=== PATIENT | male | born 1965 | race Caucasian/White ===

== ENCOUNTER 2019-03-19 15:50 | Inpatient (IN) | payer SELFPAY ==
[2019-03-19] VITALS: BP 138/82
[~2019-03-19] VITALS: Ht 165.1 cm; Wt 81.2 kg
[2019-03-19 16:33] LABS: BASOPHILS # (AUTO) 0.2 /CMM (0.0-0.2); EOSINOPHILS % (AUTO) 1.5 % (0.0-6.0); HEMATOCRIT 48 % (39-51); HEMOGLOBIN 16.4 g/dL (13.5-17.5); LYMPHOCYTES # (AUTO) 1.3 /CMM (0.8-4.8); LYMPHOCYTES % (AUTO) 15.6 % (20.0-44.0); MEAN CORPUSCULAR HGB CONC 34 g/dl (31.0-36.0); MEAN CORPUSCULAR VOLUME 92 fL (80-96); MONOCYTES # (AUTO) 0.5 /CMM (0.1-1.30); MONOCYTES % (AUTO) 5.9 % (2.0-12.0); NEUTROPHILS # (AUTO) 6.2 /CMM (1.8-8.9); PLATELET COUNT (AUTO) 204 /CMM (150-450); RED BLOOD CELL COUNT(AUTO) 5.18 MIL/uL (4.5-6.0); WHITE BLOOD COUNT (AUTO) 8.3 K/uL (4.3-11.0)
[2019-03-19 16:38] LABS: CALCIUM, SERUM 8.9 mg/dL (8.5-10.1); CARBON DIOXIDE 30 mmol/L (21-32); CHLORIDE 104 mmol/L (98-107); CREATININE 1.1 mg/dL (0.6-1.3); GLUCOSE 250 mg/dL (74-106); POTASSIUM 4.1 mmol/L (3.5-5.1); SODIUM SERUM 142 mmol/L (136-145); UREA NITROGEN, BLOOD 22 mg/dL (7-18)
--- NOTE | 2019-03-19 17:30 | NUR ---
PAGED DR. MENDES.
--- NOTE | 2019-03-19 17:43 | NUR ---
CALLED NURSING SUP FOR TELE BED.
--- NOTE | 2019-03-19 17:45 | NUR ---
PAGED [facility].
--- NOTE | 2019-03-19 18:12 | NUR ---
NURSING SUP GAVE TELE BED 323-1.
--- NOTE | 2019-03-19 18:27 | NUR ---
Patient awake alert no\n distress HR 110-120 non sustain no Sob continue o monitor
--- NOTE | 2019-03-19 18:35 | NUR ---
Given Report to Laura MARTINEZ aware of plan of care
[2019-03-19] MEDS ORDERED: MAGNESIUM HYDROXIDE 30 ML UDC PO PRN (19:00)
[2019-03-19] MEDS ORDERED: HYDROCODONE/APAP 5/325MG 1 EACH TABLET PO PRN (19:00)
[2019-03-19] MEDS ORDERED: ZOLPIDEM TARTRATE 5 MG TABLET PO PRN (19:00)
[2019-03-19] MEDS ORDERED: ACETAMINOPHEN 325 MG TABLET PO PRN (19:00)
[2019-03-19] MEDS ORDERED: ONDANSETRON HCL/PF 4 MG/2 ML VIAL IVP PRN (19:00)
[2019-03-19] MEDS ORDERED: MAG HYDROX/AL HYDROX/SIMETH 30 ML UDC PO PRN (19:00)
[2019-03-19] MEDS ORDERED: Z GUARD REMEDY 2 OZ OINT TP PRN (19:00)
--- NOTE | 2019-03-19 19:19 | NUR ---
Rianna hsu report to Laura MARTINEZ 323-1
--- NOTE | 2019-03-19 19:20 | NUR ---
BUILDING MOVERWARDROBE SPECIALTY WORKER NOTES Received patient from ER accompanied by 2 ER staff. Admitted to Tele 323-1 due to CP with abnormal EKG. Transferred to bed, noted ambulatory without assistance. On tele monitor with NSR with PVCs noted. Kept on bed clean, dry and comfortable. Call light within easy reach. Will continue to monitor accordingly.
[2019-03-19 20:00] VITALS: BP 152/94
--- NOTE | 2019-03-19 20:00 | NUR ---
GRAIN GRADER NOTES Dr. Brown at bedside. Witnessed consent for cardiac cath tomorrow AM. Patient will be on NPO except meds starting midnight.
[2019-03-19 20:34] VITALS: BP 152/94
[2019-03-19] MEDS: METOPROLOL TARTRATE 25 MG TABLET PO SCH (21:13)
[2019-03-19] MEDS ORDERED: ATORVASTATIN 10 MG TABLET PO SCH (22:00)
[2019-03-20] VITALS (13 sets, daily range): BP systolic 103–135; BP diastolic 57–82
[2019-03-20 04:00] LABS: BASOPHILS # (AUTO) 0.1 /CMM (0.0-0.2); BASOPHILS % (AUTO) 0.7 % (0.0-2.0); EOSINOPHILS % (AUTO) 1.4 % (0.0-6.0); HEMATOCRIT 46 % (39-51); HEMOGLOBIN 15.8 g/dL (13.5-17.5); LYMPHOCYTES # (AUTO) 2.1 /CMM (0.8-4.8); LYMPHOCYTES % (AUTO) 23.8 % (20.0-44.0); MEAN CORPUSCULAR HGB CONC 35 g/dl (31.0-36.0); MEAN CORPUSCULAR VOLUME 91 fL (80-96); MONOCYTES # (AUTO) 0.6 /CMM (0.1-1.30); MONOCYTES % (AUTO) 7.1 % (2.0-12.0); NEUTROPHILS # (AUTO) 5.8 /CMM (1.8-8.9); PLATELET COUNT (AUTO) 182 /CMM (150-450); RED BLOOD CELL COUNT(AUTO) 5.05 MIL/uL (4.5-6.0); WHITE BLOOD COUNT (AUTO) 8.7 K/uL (4.3-11.0)
[2019-03-20 04:17] LABS: ALBUMIN 3.8 g/dL (3.4-5.0); BILIRUBIN,TOTAL 0.7 mg/dL (0.2-1.0); CALCIUM, SERUM 8.5 mg/dL (8.5-10.1); CREATININE 0.8 mg/dL (0.6-1.3); MAGNESIUM 2.1 mg/dL (1.8-2.4); PHOSPHORUS 3.9 mg/dL (2.5-4.9); POTASSIUM 3.7 mmol/L (3.5-5.1); TOTAL PROTEIN, SERUM 6.7 g/dL (6.4-8.2)
[2019-03-20 04:25] LABS: THYROID STIMULATING HORMONE 1.182 uIU/mL (0.358-3.74)
[2019-03-20 06:06] LABS: APPEARANCE,URINE CLEAR (CLEAR); BILIRUBIN,URINE NEGATIVE (NEGATIVE); BLOOD, URINE NEGATIVE Ery/uL (NEGATIVE); COLOR,URINE YELLOW (YELLOW); KETONES,URINE NEGATIVE (NEGATIVE); LEUKOCYTE ESTERASE ,URINE NEGATIVE (NEGATIVE); NITRITE, URINE NEGATIVE (NEGATIVE); PH,URINE 7.5 (5.0-8.0); PROTEIN,URINE NEGATIVE (NEGATIVE); UGLUCOSE NEGATIVE (NEGATIVE); UROBILINOGEN,URINE 0.2 EU/dL (0.2)
[2019-03-20] MEDS ORDERED: IV NS 0.9% 1,000 ML ONE (06:09)
[2019-03-20] MEDS ORDERED: IODIXANOL 150 ML IV ONE (06:09)
[2019-03-20] MEDS ORDERED: IV SET PRIMARY PUMP SET 1 EA INFUS.SET MC ONE (06:09)
[2019-03-20] MEDS ORDERED: LIDOCAINE HCL/PF 1% 30 ML SDV ONE (06:10)
[2019-03-20] MEDS ORDERED: NITROGLYCERIN ICAR 1,000 MCG/10 ML VIAL ICAR ONE (06:10)
[2019-03-20] MEDS ORDERED: VERAPAMIL HCL IV 5 MG/2 ML VIAL ONE (06:10)
--- NOTE | 2019-03-20 06:30 | NUR ---
CHIEF UNDERWRITER NOTES Cardiac environmental laboratory technician RN at bedside for prep.
[2019-03-20] MEDS ORDERED: IV SET PRIMARY 1 EA INFUS.SET MC ONE (06:43)
--- NOTE | 2019-03-20 06:59 | NUR ---
TIN POURER CLOSING NOTES Patient picked up via gurney to lab courier for the procedure accompanied by 2 lab courier RNs.
[2019-03-20] MEDS ORDERED: PANTOPRAZOLE 40 MG TABLET.DR PO SCH (07:30)
[2019-03-20] MEDS ORDERED: HEPARIN SODIUM, PORCINE 1,000 UNIT/ML VIAL ONE (07:33)
[2019-03-20] MEDS ORDERED: FENTANYL PF 100MCG/2ML AMPUL ONE (07:37)
[2019-03-20] MEDS ORDERED: MIDAZOLAM HCL 2 MG/2ML VIAL ONE (07:37)
[2019-03-20] MEDS ORDERED: HEPARIN SODIUM, PORCINE 5000 UNITS/1 ML VIAL ONE (07:58)
[2019-03-20] MEDS ORDERED: LISINOPRIL (5MG) 5 MG TABLET PO SCH (09:00)
[2019-03-20] MEDS ORDERED: ASPIRIN EC 81 MG TABLET.DR PO SCH (09:00)
--- NOTE | 2019-03-20 09:00 | NUR ---
ICU/RN: Pt received from salvage laborer, Aimee costa&Kelli, no distress noted. SR on monitor. TR band to R radial in place, no bleeding noted. Pedal pulses normal. Oriented to unit and POC. Verbalized understanding.
[2019-03-20] MEDS: METOPROLOL TARTRATE 25 MG TABLET PO SCH (10:30)
--- NOTE | 2019-03-20 11:15 | NUR ---
ICU/RN: Dr Brown at bedside; poc dw patient. EKG reviewed.
--- NOTE | 2019-03-20 12:15 | NUR ---
ICU/RN: TR band removed per order. Tegaderm applied. Verbalized understanding of aftercare.
--- NOTE | 2019-03-20 15:35 | NUR ---
RN NOTE PT SIGNED AMA PAPER AND LEFT IN STABLE CONDITION AMA WITH DAUGHTER AND OTHER FAMILY MEMBERS VIA OWN TRANSPORTATION. PER FAMILY AND PT, HE WILL GO TO [facility]. PAPERWORK AND COPIES OF RECORDS GIVEN TO PT. IV SITES FROM RIGHT AC AND LEFT WRIST REMOVED, ID BAND REMOVED, PT HAD OWN CLOTHING, BELONGING LIST SIGNED AND BELONGINGS PROVIDED TO PT. PT AMBULATORY CHARGE NURSE AWARE, AWARE.
== END 2019-03-20 15:35 | disposition left against medical advice (07) | DRG 287 ==
LOC: ER 15:59 → TELE 18:34 → ICU 03-20 08:55
PROVIDERS: ADMIT Hospitalist; ATTEND Hospitalist
DX: I25.110 Atherosclerotic heart disease of native coronary artery with unstable angina pectoris (principal); E11.65 Type 2 diabetes mellitus with hyperglycemia; E86.0 Dehydration; I10 Essential (primary) hypertension; Z68.29 Body mass index [BMI] 29.0-29.9, adult; E78.5 Hyperlipidemia, unspecified; E66.3 Overweight; I49.3 Ventricular premature depolarization; I25.5 Ischemic cardiomyopathy
CPT/HCPCS: 36415; 71045-TC; 80048-TC; 80053-TC; 80061-TC; 81000-TC; 83690-TC; 83735-TC; 84100-TC; 84443-TC; 84484-TC; 85025-TC; 85610-TC; 85730-TC; 87081-TC; 93307-TC; 93452; C1769; C1887; G0378; J1644; J2250; J3010; J3490; Q9967